=== PATIENT | female | born 1940 | race Caucasian/White ===

== ENCOUNTER → 2024-10-11 | Outpatient (CLI) | payer MEDICARE, MEDICAID, SELFPAY ==
[2024-10-11 10:02] LABS: Basophils % (Auto) 0 % (0-2.5); Eosinophils # (Auto) 0.1 Thou/mm3 (0.0-0.5); Eosinophils % (Auto) 2 % (0-10); Hematocrit 42.4 % (36.0-46.0); Hemoglobin 14.3 g/dL (12.0-16.0); Immature Granulocytes % (Auto) 0 % (0-0); Immature Granulocytes Auto 0.03 Thou/mm3 (0.00-0.00); Lymphocytes # (Auto) 1.5 Thou/mm3 (1.0-4.8); Lymphocytes % (Auto) 22 % (10-50); Mean Corpuscular HGB Conc 33.7 g/dl (31.0-37.0); Mean Corpuscular Hemoglobin 30.7 pg (25.0-35.0); Mean Corpuscular Volume 91 fL (80-100); Monocytes # (Auto) 0.6 Thou/mm3 (0.0-0.8); Monocytes % (Auto) 9 % (0-12); Neutrophils # (Auto) 4.5 Thou/mm3 (1.8-7.7); Neutrophils % (Auto) 67 % (37-80); Nucleated Red Blood Cell % 0 /100 WBC (0); Platelet Count 218 Thou/mm3 (140-440); RDW Standard Deviation 47.7 fL (36.4-46.3); Red Blood Count 4.66 Miln/mm3 (4.00-5.20); White Blood Count 6.7 Thou/mm3 (3.6-11.0)
[2024-10-11 10:21] LABS: Syphilis Nonreactive (Nonreactive)
[2024-10-11 11:03] LABS: Glucose Estimated Average 105 mg/dL (80-131); Hemoglobin A1C 5.3 % Hgb (4.8-6.0)
[2024-10-11 11:14] LABS: Vitamin B12 210 pg/mL (211-911); Vitamin D 25 Hydroxy Total 18.8 ng/mL (7.3-40.2)
[2024-10-11 11:29] LABS: Alanine Aminotransferase 7 U/L (10-49); Albumin, Serum 4.2 gm/dL (3.4-4.8); Albumin/Globulin Ratio 1.9 (1.2-2.2); Alkaline Phosphatase 100 U/L (46-116); Anion Gap 7 (7-16); Aspartate Amino Transferase 13 U/L (0-34); BUN/Creatinine Ratio 11 Ratio (12-20); Bilirubin,Total 0.8 mg/dL (0.3-1.2); Blood Urea Nitrogen 11 mg/dL (9-23); Calcium 8.9 mg/dL (8.3-10.6); Calcium (Corrected) 8.9 mg/dL (8.5-10.1); Carbon Dioxide 26.8 mMol/L (20.0-31.0); Cardiac Risk Estimate 3.5 RATIO (3.7-5.6); Chloride 109 mMol/L (98-107); Cholesterol 159 mg/dL (132-200); Free T4 (Free Thyroxine) 1.15 ng/dL (0.89-1.76); Globulin 2.2 gm/dL (2.3-3.5); Glucose 101 mg/dL (74-106); HDL Cholesterol 45 mg/dL (40-60); LDL Cholesterol,Calculated 99 mg/dL (0-130); Osmolality,Calculated 284 (275-295); Sodium 143 mMol/L (136-145); Thyroid Stimulating Hormone 1.91 uIU/mL (0.55-4.78); Total Protein 6.4 gm/dL (5.7-8.2); Triglycerides 76 mg/dL (30-150); eGFR 56 See Note
== END | disposition home or self-care (01) ==
PROVIDERS: PCP Family Medicine; Referring Provider Psychiatry & Neurology Neurology; Visit Provider Psychiatry & Neurology Neurology
DX: F03.A0 Unspecified dementia, mild, without behavioral disturbance, psychotic disturbance, mood disturbance, and anxiety (principal)
CPT/HCPCS: 36415; 80053; 80061; 82306; 82607; 83036; 84439; 84443; 85025; 86780

== ENCOUNTER 2024-10-26 13:46 | Emergency (ER) | payer MEDICARE, MEDICAID, SELFPAY ==
[2024-10-26 13:47] VITALS: BMI 26.4
[2024-10-26 14:01] VITALS: BP 137/74; PULSE 65; RESP 18; TEMP 37.1; O2SAT 98
--- NOTE | 2024-10-26 14:08 | XR_ITS ---
Examination: Knee, left , 3 views Technique: Knee AP, lateral, oblique 3 views Date and time of exam: October 26, 2024 1436 hours INDICATIONS: Left-sided knee pain and weakness beginning today. FINDINGS: Moderate to advanced tricompartment osteoarthritis, most severe medial patellofemoral joints Prominent osteopenia No fracture IMPRESSION: Moderate to advanced tricompartment osteoarthritis
--- NOTE | 2024-10-26 14:08 | XR_ITS ---
Examination: CT brain head without contrast. 2-D sagittal coronal reconstructions Date and time of exam:October 26, 2024 at 1547 hours INDICATIONS: Left-sided head pain and weakness today CTDI: vol (mGy): 47.7 DLP: (mGycm):912 Technique: Multiple CT axial sections of the brain have been obtained, 5 mm slice thickness. Contrast has not been administered. 2-D sagittal, coronal reconstructions have been obtained Low dose protocols were performed. One or more of the following dose reduction techniques were used; automated exposure control, adjustment of the mA and/or KV according to patient size, use of iterative reconstruction technique. Findings: No significant ventricular enlargement. Intra-axial or extra-axial hemorrhage density is not seen. No mass effect or midline shift Basal cisterns are not remarkable. Fourth ventricle is midline. Cranial vault intact. Impression: Negative for acute hemorrhage, mass effect or midline shift Advise clinical correlation and follow up accordingly If symptoms persist, consider brain MRI follow-up, stroke protocol
--- NOTE | 2024-10-26 14:08 | XR_ITS ---
Examination: PA lateral chest 2 views TECHNIQUE: Upright PA lateral chest 2 views Date and time: October 26, 2024 1424 hours INDICATIONS: Left-sided chest pain today FINDINGS: Pneumonia posterior basal segment left lower lobe noted on the lateral view, obscuring detail posterior portion left hemidiaphragm No significant cardiac enlargement Prominent osteopenia IMPRESSION: Pneumonia posterior basal segment left lower lobe
--- NOTE | 2024-10-26 14:08 | XR_ITS ---
Examination: Shoulder,left, 3 views Technique: Shoulder AP internal rotation, AP external rotation, Y view shoulder, 3 views Exam date and time :October 29, 2024 1421 hours INDICATIONS: Left-sided shoulder pain beginning today. FINDINGS: Moderate narrowing glenohumeral joint Prominent osteopenia No shoulder fracture or dislocation No AC joint separation Moderate osteoarthritis acromioclavicular joint IMPRESSION: Moderate osteoarthritis
--- NOTE | 2024-10-26 14:08 | EKG_ITS ---
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
--- NOTE | 2024-10-26 14:08 | XR_ITS ---
Examination: Duplex scan of the lower extremity, unilateral left complete Date and time of exam: October 26, 2024 1518 hours INDICATIONS: Onset left leg pain beginning 2 days ago Technique: Duplex scan of the extremity veins using B-mode/grayscale imaging and Doppler spectral analysis and color flow Attention is directed to internal echogenicity, compression and augmentation involving these veins, color flow assessment, spectral analysis Findings: Major deep venous structures in the extremity demonstrate normal course and caliber. There is no evidence of deep vein thrombosis. Normal color flow and spectral analysis Impression: Negative for DVT..
--- NOTE | 2024-10-26 14:09 | PD.EDRME ---
Rapid Medical Screening Exam E Arrival date/time: 10/26/24 13:46 84-year-old female presents emergency dept today for complaints of left-sided pain and weakness Chief Complaint: Extremity Injury, Lower Vital signs: Vital Signs Temperature 98.7 F 10/26/24 14:01 Pulse Rate 65 10/26/24 14:01 Respiratory Rate 18 10/26/24 14:01 Blood Pressure 137/74 H 10/26/24 14:01 Pulse Oximetry (%) 98 10/26/24 14:01 Oxygen Delivery Method Room Air 10/26/24 14:01
--- NOTE | 2024-10-26 14:24 | XR_ITS ---
Examination:Left hip AP, lateral, AP pelvis 3 views Technique: Hip AP lateral, AP pelvis, 3 views Exam date and time:October 26, 2024 1436 hours INDICATIONS: Left-sided head pain weakness today FINDINGS: Severe osteopenia Left abdomen small bowel mild ileus Mild bilateral hip osteoarthritis No hip or pelvic fracture IMPRESSION: No hip or pelvic fracture Mild bilateral hip osteoarthritis.
[2024-10-26 15:21] LABS: Basophils % (Auto) 0 % (0-2.5); Eosinophils % (Auto) 0 % (0-10); Hematocrit 39.4 % (36.0-46.0); Hemoglobin 13.4 g/dL (12.0-16.0); Immature Granulocytes % (Auto) 0 % (0-0); Immature Granulocytes Auto 0.02 Thou/mm3 (0.00-0.00); Lymphocytes # (Auto) 1.3 Thou/mm3 (1.0-4.8); Lymphocytes % (Auto) 15 % (10-50); Mean Corpuscular Hemoglobin 30.7 pg (25.0-35.0); Mean Corpuscular Volume 90 fL (80-100); Monocytes # (Auto) 0.5 Thou/mm3 (0.0-0.8); Monocytes % (Auto) 6 % (0-12); Neutrophils # (Auto) 6.9 Thou/mm3 (1.8-7.7); Neutrophils % (Auto) 79 % (37-80); Nucleated Red Blood Cell % 0 /100 WBC (0); Platelet Count 190 Thou/mm3 (140-440); RDW Standard Deviation 47.3 fL (36.4-46.3); Red Blood Count 4.36 Miln/mm3 (4.00-5.20); White Blood Count 8.7 Thou/mm3 (3.6-11.0)
[2024-10-26 15:41] LABS: Alanine Aminotransferase 8 U/L (10-49); Albumin, Serum 4.3 gm/dL (3.4-4.8); Albumin/Globulin Ratio 2.4 (1.2-2.2); Alkaline Phosphatase 93 U/L (46-116); Anion Gap 8 (7-16); Aspartate Amino Transferase 16 U/L (0-34); BUN/Creatinine Ratio 11 Ratio (12-20); Bilirubin,Total 1.1 mg/dL (0.3-1.2); Blood Urea Nitrogen 11 mg/dL (9-23); Calcium 9.5 mg/dL (8.3-10.6); Calcium (Corrected) 9.5 mg/dL (8.5-10.1); Carbon Dioxide 26.8 mMol/L (20.0-31.0); Chloride 106 mMol/L (98-107); Globulin 1.8 gm/dL (2.3-3.5); Glucose 104 mg/dL (74-106); Osmolality,Calculated 280 (275-295); Potassium 4.4 mMol/L (3.4-5.1); Sodium 141 mMol/L (136-145); Total Protein 6.1 gm/dL (5.7-8.2); Troponin I < 0.020 ng/mL (0.0-0.045); eGFR 56 See Note
[2024-10-26 16:23] VITALS: BP 124/67; PULSE 60; RESP 20; TEMP 36.9; O2SAT 95
--- NOTE | 2024-10-26 16:50 | XR_ITS ---
Examination: CT chest with intravenous contrast CT abdomen with intravenous contrast CT pelvis with intravenous contrast 2-D coronal and sagittal reconstructions Time of exam: October 26, 2024 1821 hours INDICATIONS: Onset chest pain left-sided abdominal pain today CTDI: vol (mGy) : 8.72 DLP: (mGycm): 589 Technique: Multiple axial images of the chest, abdomen and pelvis with intravenous contrast, 3.0 mm slice thickness. Images obtained post intravenous injection Isovue 30 cc Isovue 300 2-D sagittal and coronal reconstructions. Low dose protocols were performed. One or more of the following dose reduction techniques were used; automated exposure control, adjustment of the mA and/or KV according to patient size, use of iterative reconstruction technique. Findings: Pulmonary artery opacification is poor No thoracic aortic aneurysm dilatation No mediastinal lymphadenopathy Mild enlargement cardiac contour. Mild vascular congestion. Atelectasis versus pneumonia left lung base No liver or splenic lesion Cholelithiasis Common bile duct 7 mm no common bile duct stones No pancreatic mass Absent right kidney Dilatation of the left renal calyces and pelvis, congenital ureteropelvic junction obstruction pattern No bowel obstruction No pericecal inflammatory change 12 mm fat-containing umbilical hernia 21 mm left pelvic cyst Moderately distended urinary bladder Atrophic uterus Grade 1 spondylolisthesis L5 on S1 with advanced degenerative disc disease at this level IMPRESSION: Atelectasis versus pneumonia left lung base Cholelithiasis No common bile duct stones noted. 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
[2024-10-26] MEDS: SODIUM CHLORIDE 0.9% 1000 ML 1,000 ML 999 ML IV (17:34)
[2024-10-26 18:08] VITALS: BP 131/81; PULSE 67; RESP 18; TEMP 36.9; O2SAT 96
--- NOTE | 2024-10-26 18:11 | PD.EDADDENDU ---
Emergency Room Addendum <Tequila Ellis - Last Filed: 10/26/24 20:19> Addendum Narrative: 1800: Care assumed from Dr. Cortez (emergency physician). Past medical, surgical, social and family history reviewed. Vitals and home medications reviewed. Results and treatment plan discussed. They will assume the care of the patient at this time and will follow the patient, pending Chest/Abdomen/Pelvis CT. The following addendum documentation note is intended to reflect any pending information, findings, or radiology results not included in the patient?s initial chart by the previous shift scribe. RADIOLOGY Chest/Abdomen/Pelvis CT: Patient: DOLORES METCALF. Record#: [id number] Birthdate: 1940 Age/Sex: 84 / F Location: [facility] Attending Dr: Ordering Physician: Damian Cortez MD Date of Service: 10/26/24 Procedure(s): CT chest abdomen pelvis w Accession Number(s): [id number] cc: Damian Cortez MD; Good Prasad MD; Amber Verde MD~ Examination: CT chest with intravenous contrast CT abdomen with intravenous contrast CT pelvis with intravenous contrast 2-D coronal and sagittal reconstructions Time of exam: October 26, 2024 1821 hours INDICATIONS: Onset chest pain left-sided abdominal pain today CTDI: vol (mGy) : 8.72 DLP: (mGycm): 589 Technique: Multiple axial images of the chest, abdomen and pelvis with intravenous contrast, 3.0 mm slice thickness. Images obtained post intravenous injection Isovue 30 cc Isovue 300 2-D sagittal and coronal reconstructions. Low dose protocols were performed. One or more of the following dose reduction techniques were used; automated exposure control, adjustment of the mA and/or KV according to patient size, use of iterative reconstruction technique. Findings: Pulmonary artery opacification is poor No thoracic aortic aneurysm dilatation No mediastinal lymphadenopathy Mild enlargement cardiac contour. Mild vascular congestion. Atelectasis versus pneumonia left lung base No liver or splenic lesion Cholelithiasis Common bile duct 7 mm no common bile duct stones No pancreatic mass Absent right kidney Dilatation of the left renal calyces and pelvis, congenital ureteropelvic junction obstruction pattern No bowel obstruction No pericecal inflammatory change 12 mm fat-containing umbilical hernia 21 mm left pelvic cyst Moderately distended urinary bladder Atrophic uterus Grade 1 spondylolisthesis L5 on S1 with advanced degenerative disc disease at this level IMPRESSION: Atelectasis versus pneumonia left lung base Cholelithiasis No common bile duct stones noted. 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 Patient discharged. <Emily Nitin - Last Filed: 10/28/24 04:59> Addendum Narrative: 1800: Care assumed from Dr. Cortez (emergency physician). Past medical, surgical, social and family history reviewed. Vitals and home medications reviewed. Results and treatment plan discussed. They will assume the care of the patient at this time and will follow the patient, pending Chest/Abdomen/Pelvis CT. Please refer to the emergency department record for history and examination from initial visit. 1953: Discussed results with the patient. Patient has no emergent abnormalities in their studies and can be managed on an outpatient basis. Patient is stable to be discharged. RADIOLOGY Chest/Abdomen/Pelvis CT: Patient: DOLORES METCALF [facility]. Record#: [id number] Birthdate: 1940 Age/Sex: 84 / F Location: [facility] Attending Dr: Ordering Physician: Damian Cortez MD Date of Service: 10/26/24 Procedure(s): CT chest abdomen pelvis w Accession Number(s): [id number] cc: Damian Cortez MD; Good Prasad MD; Amber Verde MD~ Examination: CT chest with intravenous contrast CT abdomen with intravenous contrast CT pelvis with intravenous contrast 2-D coronal and sagittal reconstructions Time of exam: October 26, 2024 1821 hours INDICATIONS: Onset chest pain left-sided abdominal pain today CTDI: vol (mGy) : 8.72 DLP: (mGycm): 589 Technique: Multiple axial images of the chest, abdomen and pelvis with intravenous contrast, 3.0 mm slice thickness. Images obtained post intravenous injection Isovue 30 cc Isovue 300 2-D sagittal and coronal reconstructions. Low dose protocols were performed. One or more of the following dose reduction techniques were used; automated exposure control, adjustment of the mA and/or KV according to patient size, use of iterative reconstruction technique. Findings: Pulmonary artery opacification is poor No thoracic aortic aneurysm dilatation No mediastinal lymphadenopathy Mild enlargement cardiac contour. Mild vascular congestion. Atelectasis versus pneumonia left lung base No liver or splenic lesion Cholelithiasis Common bile duct 7 mm no common bile duct stones No pancreatic mass Absent right kidney Dilatation of the left renal calyces and pelvis, congenital ureteropelvic junction obstruction pattern No bowel obstruction No pericecal inflammatory change 12 mm fat-containing umbilical hernia 21 mm left pelvic cyst Moderately distended urinary bladder Atrophic uterus Grade 1 spondylolisthesis L5 on S1 with advanced degenerative disc disease at this level IMPRESSION: Atelectasis versus pneumonia left lung base Cholelithiasis No common bile duct stones noted. 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
--- NOTE | 2024-10-26 18:33 | EDNOTE_ITS ---
ED Extremity Problem RME/HPI General Chief complaint: Extremity Injury, Lower Stated complaint: LEFT LEG SWELLING AND LEFT ARM PAIN Time Seen by Provider: 10/26/24 18:11 Arrival date/time: 10/26/24 13:46 RME / HPI RME / HPI Narrative: 10/26/24 13:46 84-year-old female presents emergency dept today for complaints of left-sided pain and weakness DR. MEÑO GIL ED EVALUATION: 84 year old female presents to the ED for evaluation of left sided pain that began yesterday and has worsened significantly this morning. The patient reports that around 2:00 PM yesterday, she began experiencing mild pain to the left th igh and hip region. Her son assisted her into bed last night, and upon waking this morning, the pain had become severe 9/10 in severity. Since then, the pain has spread and is now accompanied by discomfort in the left upper extremity, left shoulder, and left side of the abdomen. She also reports swelling in the left shoulder and left knee, which improved somewhat with application of ice packs. Additionally, she notes that at some point today she developed new pain on the right side of her body, though she does not specify the exact location. Son states they consulted with PCP earlier today due to the rapid progression of her symptoms. PCP advised come to the ED for further evaluation. Patient denies any recent falls, trauma, or other known injuries. No other associated symptoms, such as fever, chills, chest pain, shortness of breath, nausea, or urinary complaints, are reported. Patient reports history of renal carcinoma in childhood, for which she underwent kidney resections at ages 8 and 11. She reports that one and a half of her kidneys were removed during those surgeries. Related Data Allergies Allergy/AdvReac Type Severity Reaction Status Date / Time No Known Allergies Allergy Verified 10/26/24 13:50 Review of Systems Review of Systems Systems Reviewed: All systems reviewed, normal except as documented Past Medical History Past Medical History CARDIAC: Negative Cardiac Disorders or Congestive Heart Failure RESPIRATORY: Positive Asthma; Negative Chronic Obstructive Pulmonary Disease (COPD) GENITOURINARY: Positive Renal Disease (nephrectomy) ENDOCRINE: Negative Diabetes Mellitus Type 1 or Diabetes Mellitus Type 2 HEMATOLOGIC: Negative Sickle Cell Disease Social History SMOKING STATUS: Never smoker ED Exam Narrative Physical exam: GENERAL APPEARANCE: AxOx4, nontoxic appearing HEENT: NC, AT. MMM. EOMI, clear conjunctiva, oropharynx clear. NECK: Supple without lymphadenopathy. No stiffness or restricted ROM. HEART: Normal rate and regular rhythm, normal S1/S1, no m/r/g LUNGS: CTAB, moving air well. No crackles or wheezes are heard. ABDOMEN: Soft, diffuse tenderness everywhere I palpate, LLQ ecchymosis, LLQ surgical scar that is c/d/i, nondistended with good bowel sounds heard. BACK: No midline C/T/L spine pain or deformity, No CVAT, no obvious deformity. EXTREMITIES: Patient has diffuse pain everywhere I palpate. Without cyanosis, clubbing or edema. MUSCULOSKELETAL: FROM of all major joints, no chest tenderness NEUROLOGICAL: Grossly nonfocal. Alert and oriented, moving all 4 extremities. CN not formally tested but appear grossly intact. Skin: Warm and dry without any rash. Course Quality Measures none Orders Category Date Time Status CT Screening NOW Care 10/26/24 16:50 Completed EKG (ED ONLY) *Do not use* NOW Care 10/26/24 14:[address] chest abdomen pelvis w Stat Exams 10/26/24 16:[address] head/brain wo con Stat Exams 10/26/24 14:08 Completed EKG (ED Only) Stat Exams 10/26/24 14:08 Draft US venous doppler LE LT Stat Exams 10/26/24 14:08 Completed XR chest 2V Stat Exams 10/26/24 14:08 Completed XR hip LT w pelvis 2-3V Stat Exams 10/26/24 14:24 Completed XR knee LT 3V Stat Exams 10/26/24 14:08 Completed XR shoulder LT min 2V Stat Exams 10/26/24 14:08 Completed CBC Stat Lab 10/26/24 15:07 Completed Comprehensive Metabolic Panel Stat Lab 10/26/24 15:07 Completed Troponin I Stat Lab 10/26/24 15:07 Completed Sodium Chloride 0.9% 1000 ml [Ns] 1,000 ml Med 10/26/24 16:50 Discontinued IV 999 mls/hr Vital Signs Vital signs: Vital Signs Temperature 98.7 F 10/26/24 14:01 Pulse Rate 65 10/26/24 14:01 Respiratory Rate 18 10/26/24 14:01 Blood Pressure 137/74 H 10/26/24 14:01 Pulse Oximetry (%) 98 10/26/24 14:01 Oxygen Delivery Method Room Air 10/26/24 14:01 Pulse ox is 98% on room air which is adequate. Extremity Problem MDM Narrative MDM Narrative:: Kelly Nolan am scribing for and in the presence of Dr. Cortez. Patient data External records reviewed:: None (No previous ED visits for review ) Clinical information provided by:: patient and family (son adds to hpi) Social determinants that could affect healthcare access:: none Patient has the following chronic illnesses:: renal carcinoma in childhood, for which she underwent kidney resections at ages 8 and 11. She reports that one and a half of her kidneys were removed during those surgeries. How is presenting disease/condition affected by chronic disease/condition?: uneffected by Evaluation data The following diagnostics were reviewed and interpreted by me:: lab results, radiology exam(s) and EKG tracing(s) Lab and/or radiology exams considered but not ordered:: None Interpretation Summary: Ordering Physician: Kee BUNCH)Hema NP Date of Service: 10/26/24 Procedure(s): XR chest 2V Accession Number(s): [id number] cc: Kee BUNCH)Hema NP; Good Prasad MD~ Examination: PA lateral chest 2 views TECHNIQUE: Upright PA lateral chest 2 views Date and time: October 26, 2024 1424 hours INDICATIONS: Left-sided chest pain today FINDINGS: Pneumonia posterior basal segment left lower lobe noted on the lateral view, obscuring detail posterior portion left hemidiaphragm No significant cardiac enlargement Prominent osteopenia IMPRESSION: Pneumonia posterior basal segment left lower lobe Dictated By:Good Prasad MD Signed By:<Electronically signed by Good Prasad MD in OV>10/26/24 1438 Ordering Physician: Hema Sweet NP, NP Date of Service: 10/26/24 Procedure(s): XR knee LT 3V Accession Number(s): [id number] cc: Kee (LUCIEN),Hema LEAD CARE MANAGER; Good Prasad MD~ Examination: Knee, left , 3 views Technique: Knee AP, lateral, oblique 3 views Date and time of exam: October 26, 2024 1436 hours INDICATIONS: Left-sided knee pain and weakness beginning today. FINDINGS: Moderate to advanced tricompartment osteoarthritis, most severe medial patellofemoral joints Prominent osteopenia No fracture IMPRESSION: Moderate to advanced tricompartment osteoarthritis Dictated By:Godo Prasad MD Signed By:<Electronically signed by Good Prasad MD in OV>10/26/24 1502 Ordering Physician: Kee BUNCH)Hema NP Date of Service: 10/26/24 Procedure(s): XR shoulder LT min 2V Accession Number(s): [id number] cc: Kee (LUCIEN),Hema MCGRAW; Good Prasad MD~ Examination: Shoulder,left, 3 views Technique: Shoulder AP internal rotation, AP external rotation, Y view shoulder, 3 views Exam date and time :October 29, 2024 1421 hours INDICATIONS: Left-sided shoulder pain beginning today. FINDINGS: Moderate narrowing glenohumeral joint Prominent osteopenia No shoulder fracture or dislocation No AC joint separation Moderate osteoarthritis acromioclavicular joint IMPRESSION: Moderate osteoarthritis Dictated By:Good Prasad MD Signed By:<Electronically signed by Good Prasad MD in OV>10/26/24 1439 Ordering Physician: Kee BUNCH)Hema NP Date of Service: 10/26/24 Procedure(s): XR hip LT w pelvis 2-3V Accession Number(s): [id number] cc: Kee BUNCH),Hema MCGRAW; Good Prasad MD~ Examination:Left hip AP, lateral, AP pelvis 3 views Technique: Hip AP lateral, AP pelvis, 3 views Exam date and time:October 26, 2024 1436 hours INDICATIONS: Left-sided head pain weakness today FINDINGS: Severe osteopenia Left abdomen small bowel mild ileus Mild bilateral hip osteoarthritis No hip or pelvic fracture IMPRESSION: No hip or pelvic fracture Mild bilateral hip osteoarthritis. Dictated By:Good Prasad MD Signed By:<Electronically signed by Good Prasad MD in OV>10/26/24 1503 Medications / Prescriptions Medications or Prescriptions considered but not ordered:: None4 Medication administrations:: Medication Administration History Discontinued Medications Sodium Chloride (Ns) 1,000 mls @ 999 mls/hr IV .Q1H1M ONE Stop: 10/26/24 17:50 Last Infusion: 10/26/24 19:30 Dose: Infused Documented By: Admin: 10/26/24 17:34 Dose: 999 mls/hr Documented By: DB See above Consultations Consultation(s) initiated? (list below): No Diagnosis Most likely diagnosis given after review of the tests above:: Musculoskeletal pain Abdominal pain Admission Indicated Admission indicated?: not indicated Explain why admission is indicated or not indicated:: Patient signed out to Dr. Pretty pending CTs. Admission Request Was there a request for admission?: No Disposition Plan Disposition Plan: other (specify) (Signed out to Dr. Pretty. ) Discharge Plan Plan Patient Disposition: HOME (Self Care) Discharge Disposition comment: Stable for discharge home Patient condition on transfer: Stable Prescriptions/Referrals Referrals: Amber Verde MD [Primary Care Provider] - In 1 week Problem List Clinical Impression: Abdominal pain Patient/Caregiver Discharge Instructions Discharge Activity: activity as tolerated Education Materials: Abdominal Pain Additional Instructions: Please return to the emergency department if you have any worsening or any further medical problems and we will help you. Otherwise you should follow-up with your primary care doctor within the next several days Print Language: Brazilian Stand Alone Forms: [facility] Award Info., Patient Portal Info Letter
--- NOTE | 2024-10-26 19:15 | PC.NURSE ---
Tin Whiz Machine Operator assumes care of patient at this time, pt is A/O x 3 with no c/o pain or acute distress, family member at bed side, bed in low position and locked with side rail up x 2 and call light in reach of patient
[2024-10-26 20:00] VITALS: BP 127/84; PULSE 66; RESP 20; TEMP 36.6; O2SAT 97
== END 2024-10-26 21:06 | disposition home or self-care (01) ==
PROVIDERS: Nurse Practitioner Primary Care; Emergency Provider Emergency Medicine; PCP Family Medicine
DX: M16.0 Bilateral primary osteoarthritis of hip (principal); M17.12 Unilateral primary osteoarthritis, left knee; M19.012 Primary osteoarthritis, left shoulder; J18.9 Pneumonia, unspecified organism; I45.10 Unspecified right bundle-branch block; R51.9 Headache, unspecified; R53.1 Weakness; Z90.5 Acquired absence of kidney
CPT/HCPCS: 36415; 70450; 71046; 71260; 73030; 73502; 73562; 74177; 80053; 84484; 85025; 93005; 93971; 96360; 96361; 99284; A4649; J7030; Q9967

== ENCOUNTER → 2024-10-30 | Outpatient (CLI) | payer MEDICARE, MEDICAID, SELFPAY ==
--- NOTE | 2024-10-30 10:00 | XR_ITS ---
Examination: MRI brain without intravenous contrast. Date and time of exam: October 30, 2024 1005 hrs. Indications: Increasing memory loss 1 year Technique: Multiple axial and sagittal images of the brain obtained. Siemens high-resolution 1.5 Melody short bore scanners utilized. Sagittal sections, T1-weighted, TR 500, TE 14, are performed. Axial sections proton-density and T2-weighted have been obtained. Inversion recovery axial images, TR 9, 260, TE 111, TI 2500. Diffusion weighted images, axial sections, TR 4800, TE 128, B value 1000 Axial sections, ADC map, TR 4800, TE 128 Findings: Enlargement of the sella turcica is not present. The optic chiasm and infundibular are not remarkable. Prepontine and interpeduncular cisterns are not enlarged. There is no localized enlargement of the medulla or amy. Fourth ventricle and cerebellar tonsils appear normal in position. No subacute area of hemorrhage density is seen. Mass in the cerebellopontine angle region is not evident. Globes symmetrical. Orbital musculature including medial lateral rectus muscles do not exhibit abnormality. Diffusion-weighted images demonstrate no focus of restricted diffusion. Increased white matter signal mild to moderate Mass effect upon the ventricular system is not identified. Impression: Negative for acute hemorrhage, mass effect or midline shift No acute infarct Mild to moderate chronic microvascular white matter change
== END | disposition home or self-care (01) ==
LOC: SMRI 09:38
PROVIDERS: PCP Psychiatry & Neurology Neurology; Referring Provider Psychiatry & Neurology Neurology; Visit Provider Psychiatry & Neurology Neurology
DX: R90.82 White matter disease, unspecified (principal)
CPT/HCPCS: 70551